=== PATIENT | male | born 1965 | race Caucasian/White ===

== ENCOUNTER → 2020-08-02 | Outpatient (CLI) | payer BC ==
--- NOTE | 2020-08-02 15:25 | CARD ---
MR#: [id number] Date of Study: 08/02/2020 Ordering Physician: MAYRA HIGUERA, Referring Physician: MAYRA HIGUERA Tech: Belem Ledezma [facility] APPROVED REPORT EXAM: Two-dimensional and M-mode echocardiogram with Doppler and color Doppler. Other Information Quality : AverageHR: 90bpm Rhythm : NSR INDICATION Hypertension/HCVD RISK FACTORS Hypertension 2D DIMENSIONS RVDd3.7 (2.9-3.5cm)Left Atrium(2D)4.0 (1.6-4.0cm) IVSd1.0 (0.7-1.1cm)Aortic Root(2D)3.1 (2.0-3.7cm) LVDd5.1 (3.9-5.9cm)LVOT Diameter2.0 (1.8-2.4cm) PWd1.0 (0.7-1.1cm)LVDs2.9 (2.5-4.0cm) FS (%) 42.8 %SV90.7 ml LVEF(%)73.6 (>50%) Aortic Valve AoV Peak Ney.144.8cm/sAoV VTI28.5cm AO Peak GR.8.4mmHgLVOT Peak Ney.105.3cm/s AO Mean GR.5mmHgAVA (VMAX)2.21cm2 Mitral Valve MV E Wilncvjd68.9cm/sMV DECEL [id number] MV A Hayylllo53.3cm/sE/A Ratio0.8 Pulmonary Valve PV Peak Bcwctxfb84.8cm/s Tricuspid Valve TR P. Hqahdjwz081ii/sTR Peak Gr.25mmHg Pulmonary Vein S1 Wmvwktwv25.1cm/sD2 Bwruaypo02.7cm/s PVa [id number] LEFT VENTRICLE The left ventricle is normal size. There is normal left ventricular wall thickness. The left ventricu lar systolic function is normal and the ejection fraction is within normal range. EF 55% There is nor mal LV segmental wall motion. The left ventricular diastolic function and filling is normal for age. RIGHT VENTRICLE The right ventricle is normal size. There is normal right ventricular wall thickness. The right ventr icular systolic function is normal. ATRIA The left atrium size is normal. The right atrium size is normal. The interatrial septum is intact wit h no evidence for an atrial septal defect or patent foramen ovale as noted on 2-D or Doppler imaging. AORTIC VALVE The aortic valve is normal in structure and function. Doppler and Color Flow revealed no significant aortic regurgitation. There is no significant aortic valvular stenosis. MITRAL VALVE The mitral valve is normal in structure and function. There is no evidence of mitral valve prolapse. There is no mitral valve stenosis. Doppler and Color Flow revealed no mitral valve regurgitation note d. TRICUSPID VALVE The tricuspid valve is normal in structure and function. Doppler and Color Flow revealed no tricuspid valve regurgitation noted. Estimated PAP 28 mmHg. There is no tricuspid valve stenosis. PULMONIC VALVE Doppler and Color Flow revealed no pulmonic valvular regurgitation. There is no pulmonic valvular leela nosis. GREAT VESSELS The aortic root is normal in size. The ascending aorta is normal in size. The IVC is normal in size a nd collapses >50% with inspiration. PERICARDIAL EFFUSION There is no evidence of significant pericardial effusion. Critical Notification Critical Value: No <Conclusion> The left ventricular systolic function is normal and the ejection fraction is within normal range. EF 55% There is normal LV segmental wall motion. Signed by : Carlos Thomas, Electronically Approved : 08/02/2020 15:24:48
--- NOTE | 2020-08-02 17:00 | RAD ---
MR#: [id number] Date of Study: 08/02/2020 Ordering Physician: MAYRA HIGUERA, Referring Physician: SANDRA RIZVI Tech: RT Bessy ([place]) (N) APPROVED REPORT Test Type: Exercise Stress Nurse/Tech: Rossy Mahoney RN Test Indications: Dyspnea on exertion Cardiac History: Hypertension Medications: See Electronic Medical Record Medical History: See Electronic Medical Record Resting ECG: SR Resting Heart Rate: 72 bpm Resting Blood Pressure: 123/81mmHg Pretest Chest Pain: No chest pain Nurse/Tech Notes S1,S2 and lungs slightly diminished in the bases. Consent: The procedure was explained to the patient in lay terms. Informed consent was witnessed. Harish eout was entered into [employer]. History and Stress Test performed by RT Bessy (R) (N) Stress Symptoms Dyspnea POST EXERCISE Reason for Termination: Reached target heart rate, Dyspnea, Fatigue Target HR: Yes Max HR: 182 bpm 130% of Maximum Predicted HR: 140 bpm Exercise duration: 10:30 min:sec, 4 Stage Exercise capacity: 13.4METs Max Blood Pressure: 189/86mmHg Blood Pressure response to exercise: Normal blood pressure response during stress. Heart Rate response to exercise: WNL Chest Pain: No. Arrhythmia: No. ST Change: No. INTERPRETATION Stress EKG Conclusion: No evidence of stress induced EKG changes. Imaging Protocol IMAGE PROTOCOL: Rest Tc-99m/stress Tc-99m 1 day Rest: Stress: Viability: Radiopharm.Tc99m EcdsvanmcXj90x Sestamibi Fvan66vGq 31.8mCi Duration 15min. 15min. Img Date 08/02/2020 08/02/2020 Inj-Img [id number]. 60min. Rest Admin Site:IV - Left AntecubitalAdministrator:RT Bessy (R)(N) Stress Admin Site: IV - Left AntecubitalAdministrator: RT Irwin ([place])(N) STRESS DATA End Diast. Vol.150.0mlAv. Heart Rate89.0bpm End Syst. Vol.29.0mlCO Index BSA10.7L/min Myocardial Vlug100.0gEject. Crfmelgs54.0% Stress Rates Pk. Fill Rate2.77EDV/secLVtime Pk. Fill 151.73msec Pk. Empty Rate4.08ESV/secLVtime Pk. Mzbwp047.52msec / Pk. Fill1.79EDV/sec Stress Scores Regional WT0.00Summed WT0.00 Regional WM0.00Summed WM0.00 The rest and stress images show normal perfusion, normal contraction and thickening. LV Perf. Quant 17 Seg. SSS0.00 17 Seg. SRS2.00 17 Seg. SDS0.00 Stress Defect Extent (% LAD)0.00Rest Defect Extent (% LAD)0.00Rev. Defect Extent (% LAD)0.00 Stress Defect Extent (% LCX) 0.00Rest Defect Extent (% LCX)1.30Rev. Defect Extent (% LCX)0.00 Stress Defect Extent (% RCA)0.00Rest Defect Extent (% RCA)0.00Rev. Defect Extent (% RCA)0.00 Stress Defect Extent (% EDGAR)0.00Rest Defect Extent (% EDGAR)0.20Rev. Defect Extent (% EDGAR)0.00 Other Information Quality:Good Risk Assessment: Low Risk Conclusion 1. No evidence of EKG changes with stress testing. 2. Normal perfusion at stress/rest. 3. Low risk study. 4. EF > 60%. Signed by : Carlos Thomas, Electronically Approved : 08/02/2020 17:00:26
== END ==
LOC: ECHO 07:48
PROVIDERS: ATTEND Internal Medicine Cardiovascular Disease
DX: R06.09 Other forms of dyspnea (principal); R55 Syncope and collapse; I10 Essential (primary) hypertension
CPT/HCPCS: 78452; 93017; 93306; A9500

== ENCOUNTER → 2020-08-08 | Outpatient (CLI) | payer BC ==
--- NOTE | 2020-08-08 11:24 | KCIC ---
EXAM: Brain MRI without contrast. HISTORY: Syncope. TECHNIQUE: Multiplanar, multisequence magnetic resonance imaging of the brain was performed without c ontrast. COMPARISON: None. FINDINGS: There is no restricted diffusion to suggest acute or subacute infarction. There is no susce ptibility effect to suggest hemorrhage. There is no mass effect or midline shift. There is no hydroce phalus. There is cerebral volume loss. There is a 10 mm focus of FLAIR hyperintensity along the right tentori um. This is only seen on axial FLAIR images. There is no correlate on T2-weighted images. There is slight asymmetry in left greater than right optic nerve sheath fluid. This is not formally a ssessed on this exam. There is minimal maxillary sinus because of thickening. The mastoid air cells a re clear. There are normal flow voids within the cerebral vessels. There is no suspicious calvarial l esion. IMPRESSION: 1. No acute intracranial finding. 2. Small focus of signal change along the right tentorium. This is likely artifactual given the absen ce of a correlate finding on multiple sequences. The possibility of a single focus of signal change d ue to chronic small vessel disease or chronic demyelination is not completely excluded. 3. Prominent left optic nerve sheath fluid. This is not formally assessed on this exam and likely of no clinical significance in the absence of abnormal ophthalmologic findings. Electronically signed by: Davina Weinberg MD (08/08/2020 11:21 AM) [id number]
== END ==
LOC: KCIC MRI 10:11
PROVIDERS: ATTEND Psychiatry & Neurology Neurology with Special Qualifications in Child Neurology
DX: R55 Syncope and collapse (principal)
CPT/HCPCS: 70551